=== PATIENT | female | born 1955 | race Caucasian/White ===

== ENCOUNTER 2023-05-26 11:57 | Emergency (ER) | payer OTHER, SELFPAY ==
[2023-05-26 12:06] VITALS: BP 141/97
[2023-05-26 12:48] LABS: % Basophils 0.3 % (0-2); % Eosinophils 0.2 % (0-6); % Immature Granulocytes 0.2 % (0-0.5); % Lymphocytes 20.1 % (20.5-51.1); % Monocytes 7.2 % (1.7-9.3); Absolute Lymphocytes 1.2 10^3/uL (1.2-3.4); Absolute Monocytes 0.4 10^3/uL (0.1-0.6); Absolute Neutrophils 4.2 10^3/uL (1.4-6.5); Hematocrit 40.9 % (37.0-47.0); Hemoglobin 13.7 g/dL (12.0-16.0); Mean Corp Hgb Conc. 33.5 g/dL (33.0-37.0); Mean Corpuscular Hgb 28.8 pg (27.0-31.0); Mean Corpuscular Volume 85.9 fL (81.0-99.0); Mean Platelet Volume 8.8 fL (7.4-10.4); Nucleated Red Blood Cells % 0 %; Platelet Count 260 10^3/uL (130-400); Red Blood Cell Count 4.76 10^6/uL (4.20-5.40); Red Cell Dist. Width 12.4 % (11.5-14.5); White Blood Cell Count 5.9 10^3/uL (4.8-10.8)
[2023-05-26] MEDS: SOLU-CORTEF 200 MG IV (12:49)
[2023-05-26] MEDS: BENADRYL 50 MG IV (12:49)
[2023-05-26 12:59] LABS: INR 0.95; PT 12.4 Sec (11.4-14.6)
[2023-05-26 13:00] LABS: APTT 24.2 Sec (23.4-35.0)
[2023-05-26 13:01] LABS: ALT (SGPT) 13 U/L (0-35); AST (SGOT) 33 U/L (14-36); Albumin 4.6 g/dl (3.5-5.0); Alkaline Phosphatase 90 U/L (38-126); Blood Urea Nitrogen 15 mg/dl (7-17); Calcium 10.2 mg/dl (8.4-10.2); Carbon Dioxide 24 mmol/L (22-30); Chloride 104 mmol/L (98-107); Glucose 93 mg/dl (70-99); Potassium 4.2 mmol/L (3.5-5.1); Sodium 138 mmol/L (135-145); Total Bilirubin 0.6 mg/dl (0.2-1.3); Total Protein 7.4 g/dl (6.3-8.2); eGFR > 60.00
--- NOTE | 2023-05-26 15:13 | ED.GENMED ---
History of Present Illness
General
Chief Complaint: Trauma Significant Mechanism
Source: patient
Exam Limitations: none
Time Seen by Provider: 05/26/23 12:16
Nursing documentation reviewed up to this point in time: agreed with
Travel History
Have you had any contact with someone who has COVID-19?: No
Do you have any symptoms of coronavirus? Fever > 100 degrees, chills, cough, shortness of breath, sore throat, loss of taste or smell, muscle aches, or headache?: No
History of Present Illness
History of Present Illness:
67 y/o F with no sig pmh
here with abdominal bruising and left lower rib pain after being kicked by a horse today about 1 hour ago
she has pain in her left ant ribs with deep breathing
she deneis blood thinners, fever, cough, sob, weakness, vomiting, hematuria
no wounds.
Past History
Past History
ED Past Medical History: None
ED Past Surgical History: None
Social History
Tobacco: Non-smoker
Alcohol: None
Drug: None
Personal: Single
Living: with family
Review of Systems
Review of Systems
Allergies reviewed?: Yes
All Other Systems: Not applicable
Phy Exam
Physical Exam
Physical Exam:
GENERAL: Alert , in no apparent distress
HEAD: NCAT
NECK: no midline tenderness, active ROM intact, no paraspinal muscle tenderness;
EYE: pupils equal and reactive, EOMs intact.
ENT: o/p clr, mmm. no hemotympanum
CARDIAC: Regular rate and rhythm, no edema
LUNGS: Clear breath sounds bilaterally, no acute respiratory distress, no wheezes/rales/rhonchi
left lower anterior rib mild tenderness;
ABDOMEN: Soft, mild bruising LUQ; mild tenderness under left rib, no r/g, no cvat
NEUROLOGICAL: Alert and oriented, no focal neuro deficits, CN intact, 5/5 strength, sensation intact
SKIN: Warm and dry, redness/bruising left upper abdomen
MUSCULOSKELETAL: No edema, well perfused.
PSYCH: Normal and appropriate interaction.
Course
Orders/Labs/Results
Orders:
Orders
05/26/23 12:27
CT Chest/abd/pel W Iv Cont Urgent
Comment: dont need to wait for labs
Reason For Exam: trauma, kicked in abd by horse;
Diphenhydramine [Benadryl] 50 mg IV NOW STA
Hydrocortisone Sod Succinate [Solu-Cortef] 200 mg IV NOW STA
05/26/23 12:37
Complete Blood Count/With Diff Urgent
Comprehensive Metabolic Panel Urgent
05/26/23 12:38
PTT Urgent
Prothrombin Time Urgent
Abnormal Lab Results
05/26/23
12:37
Lymphocytes % 20.1 L %
(20.5-51.1)
05/26/23 12:37
05/26/23 12:37
Vital Signs
Initial and Last Documented VS:
Initial Vital Signs
Temp Pulse Resp BP Pulse Ox
98.4 F 93 18 141/97 97
05/26/23 12:06 05/26/23 12:06 05/26/23 12:06 05/26/23 12:06 05/26/23 12:06
Last Documented Vital Signs
Temp Pulse Resp BP Pulse Ox
98.4 F 93 18 141/97 97
05/26/23 12:06 05/26/23 12:06 05/26/23 12:06 05/26/23 12:06 05/26/23 12:06
MDM/Problems Addressed
Differential Diagnosis Includes:
Contusion, rib fracture, splenic injury
MDM/Problems Addressed:
67-year-old female quite healthy presents for trauma to her abdomen and chest wall when she got kicked by horse when she was volunteering at a horse farm. Patient says that she has a little bit of pain with deep breathing and movement. She has had
a former right-sided rib fracture a few years ago from being kicked. She is not anticoagulated. She is not having any gross hematuria.
On exam the patient is well-appearing, she has some faint erythema/bruising to her left upper quadrant with mild tenderness and tenderness to the lower ribs in the mid clavicular line. She is able to take full deep breaths.
Given the location of the injury and concern for possible splenic injury will CT chest abdomen pelvis with contrast. Patient says she has previously had itchiness and a rash from IV dye. She was thus then premedicated with meds.
Patient tolerated the CT well. She has findings of an old rib fracture which she knew about on the right side but no new left-sided injuries, including splenic injury, kidney injury, rib fracture etc. Will discharge home
*Critical Care Note
Total Time (30-74mins, 75-104mins- exclusive of procedures): Not Applicable
ED Attending Note
-
Portions of this chart may have been created with voice recognition software.� Occasional wrong word or��sound alike� substitutions may have occurred due to the inherent limitations of voice recognition software.
Discharge Plan
Departure
Patient Disposition: Home (Routine Discharge)
Date of Disposition: 05/26/23
Time of Disposition: 15:21
Patient with high blood pressure during this ER visit?: No
Covid-19: Not Applicable
Discharge Problem:
Abdominal wall contusion
Instructions: Contusion (DC)
Referrals:
Aniyah Carter DO [Family Provider] - Follow up in 2-3 days
Activity Restrictions/Additional Instructions:
your CAT scan shows an old rib fracture on the right side but no new left-sided injuries including spleen and ribs and kidneys etc. You likely have bruising which she can apply ice to and take Tylenol or ibuprofen. Return for any severe symptoms
Interventions
Interventions:
*Risk Screen - Suicide Last Done: 05/26/23 12:26
*General Assessment Last Done: 05/26/23 12:26
*Neglect/Abuse Screening Last Done: 05/26/23 12:26
ED- Fall Risk Assessment Last Done: 05/26/23 12:26
*ED COVID-19 Vaccine History Last Done: 05/26/23 12:06
Discharge Date and Time
Print Language: TRISTANIAN
[2023-05-26 15:42] VITALS: BP 132/74
== END 2023-05-26 15:45 | disposition home or self-care (01) ==
LOC: EMR 11:57
PROVIDERS: Physician Assistant; EMERGENCY PHYSICIAN Emergency Medicine; FAMILY PHYSICIAN Family Medicine
DX: S30.1XXA Contusion of abdominal wall, initial encounter (principal); R07.81 Pleurodynia; W55.12XA Struck by horse, initial encounter; Z88.2 Allergy status to sulfonamides; Z88.8 Allergy status to other drugs, medicaments and biological substances
CPT/HCPCS: 99285; 96374; 96375; 71260; 74177; 80053; 85025; 85610; 85730; Q9967